=== PATIENT | female | born 1965 | race African-American/Black ===

== ENCOUNTER 2020-01-18 23:34 | Emergency (ER) | payer OTHER, MEDICAID ==
[~2020-01-18] VITALS: Ht 157.5 cm; Wt 78.9 kg
--- NOTE | 2020-01-18 23:40 | NUR ---
BIB EMS C/O INTERMITTENT L SIDED CP RADIAITNG TO NECK, SHOULDER AND BACK WITH LEFT ARM NUMBNESS X2 DAYS. NITRO 1 SPRAY GIVEN BY EMS CHILD WELFARE ASSISTANT. PT CURRENTLY W/ NO LONGER C/O PAIN. NO SOB. PLACED ON A MONITOR. VSS. WILL CONT TO MONITOR,
--- NOTE | 2020-01-19 00:06 | NUR ---
x ray at bed side
[2020-01-19 00:07] LABS: BASOPHILS # (AUTO) 0.1 /CMM (0.0-0.2); BASOPHILS % (AUTO) 0.8 % (0.0-2.0); EOSINOPHILS % (AUTO) 1.2 % (0.0-6.0); HEMATOCRIT 41 % (33-45); HEMOGLOBIN 13.4 g/dL (11.5-14.8); LYMPHOCYTES # (AUTO) 2.5 /CMM (0.8-4.8); LYMPHOCYTES % (AUTO) 27.8 % (20.0-44.0); MEAN CORPUSCULAR HGB CONC 33 g/dl (31.0-36.0); MEAN CORPUSCULAR VOLUME 82 fL (82-100); MONOCYTES # (AUTO) 0.7 /CMM (0.1-1.30); MONOCYTES % (AUTO) 7.9 % (2.0-12.0); NEUTROPHILS # (AUTO) 5.6 /CMM (1.8-8.9); NEUTROPHILS % (AUTO) 62.3 % (43.0-81.0); PLATELET COUNT (AUTO) 509 /CMM (150-450); RED BLOOD CELL COUNT(AUTO) 4.99 MIL/uL (4.0-5.2); WHITE BLOOD COUNT (AUTO) 9.1 K/uL (4.3-11.0)
[2020-01-19 00:30] LABS: CALCIUM, SERUM 8.5 mg/dL (8.5-10.1); CARBON DIOXIDE 27 mmol/L (21-32); CHLORIDE 101 mmol/L (98-107); CREATININE 1.1 mg/dL (0.6-1.3); GLUCOSE 118 mg/dL (74-106); SODIUM SERUM 136 mmol/L (136-145); UREA NITROGEN, BLOOD 12 mg/dL (7-18)
[2020-01-19 00:38] LABS: POTASSIUM 2.8 mmol/L (3.5-5.1)
[2020-01-19] MEDS ORDERED: POTASSIUM CHLORIDE 20 MEQ TAB.PRT.SR PO ONE ×2 (00:44→01:00)
[2020-01-19] MEDS ORDERED: VENL150C2 PO (01:21)
[2020-01-19] MEDS ORDERED: HYDR12.55 PO (01:21)
[2020-01-19] MEDS ORDERED: PANT20TA3 PO (01:21)
[2020-01-19] MEDS ORDERED: AMLO2.5T2 PO (01:21)
[2020-01-19] MEDS ORDERED: LAMO100T17 PO (01:21)
--- NOTE | 2020-01-19 03:18 | NUR ---
Pt accepted to [facility] by Dr Murray. Room 2315. # for report [phone]. [facility] ETA [phone]. Addendum: 01/19/20 at 0611 by [email or web address] Pt accepted to [facility] by Dr Stein. Room 2315. # for report [phone]. [facility] ETA [phone].
--- NOTE | 2020-01-19 05:05 | NUR ---
PT RESTING IN BED COMFORTABLY WITH NO C/O PAIN OR DISCOMFORT. WILL CONT TO MONITOR,
--- NOTE | 2020-01-19 05:35 | NUR ---
REPORT GIVEN TO DEWAYNE MARTÍNEZ [facility]
[2020-01-19 06:18] VITALS: BP 101/67
--- NOTE | 2020-01-19 06:32 | NUR ---
REPORT GIVEN TO [facility]
--- NOTE | 2020-01-19 06:45 | NUR ---
pt was picked up by ambulance via gurney and transferred to [facility] under ACLS. all belongings picked up by the pt
== END 2020-01-19 06:45 | disposition short-term general hospital (02) ==
LOC: ER 23:36
DX: R07.9 Chest pain, unspecified (principal); E87.6 Hypokalemia; M54.2 Cervicalgia; K21.9 Gastro-esophageal reflux disease without esophagitis; I10 Essential (primary) hypertension; Z20.828 Contact with and (suspected) exposure to other viral communicable diseases
CPT/HCPCS: 36415; 71045; 80048; 84484; 85025; 87426; 93005; 99285; C9803